=== PATIENT | male | born 1955 | race Caucasian/White ===

== ENCOUNTER 2017-09-05 20:55 | Emergency (ER) | payer MEDICAID, SELFPAY ==
[2017-09-05 20:56] VITALS: BP 179/102; PULSE 84; RESP 18; TEMP 36.7; O2SAT 100; BMI 44.1
--- NOTE | 2017-09-05 21:20 | ED.DCSUM_ITS ---
- ER Visit Summary Date of Service: 09/05/17 Chief Complaint: right buttock pain History of Present Illness: The patient is a 61 M with no medical history who presents with atraumatic right buttock pain since yesterday. 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 He denies any known injury. He denies any abdominal pain, nausea, vomiting, bowel or bladder dysfunction. He has had a normal bowel movement today. There is no position in which she is comfortable. No weakness or numbness in the leg. Patient has tried Motrin without relief. Physical Examination: Patient is well-nourished and well-developed, obese, pacing around the room uncomfortably. Nontoxic appearing. Skin is warm and dry. Examination of the skin of the right buttock and hip shows no rash and no hyperesthesia to light touch. Patient has no midline tenderness in the thoracic or lumbar spine. No left-sided paraspinal tenderness. Right sided paraspinal tenderness in the sacral region and in the buttock. Distal sensation, motor and circulation are intact bilaterally. No gait abnormalities. Test Results: [] Emergency Department Course and Treatment: Patient's presentation and exam are concerning for lower back strain, likely piriformis syndrome. Patient has no examination findings concerning for radiculopathy. No pain below the knee. Patient was given a dose of Valium for muscle relaxant and a dose of Toradol as an anti-inflammatory. He has an appointment in the morning with his primary care doctor and is just looking for relief until this appointment. Patient will use Motrin [id number] at home during the night. He was given Zofran in case of nausea from the Valium. He will keep his appointment first thing in the morning. He will return if any concerns. Patient had no red flag symptoms that were concerning for spinal cord compression and there were no findings concerning for intra-abdominal pathology rather than a musculoskeletal complaint. Treatment Plan: [] Disposition: [] Impression: Lower back strain, piriformis syndrome This note was generated with [employer] dictation software. It may contain incorrect words, spelling, and punctuation that were not noted in review of the chart prior to signing ED Disposition - Plan for ED Patient: Chief Complaint: Lower Extremity Injury Referrals: Jung Sánchez MD [Primary Care Provider] -
--- NOTE | 2017-09-05 21:20 | ED.DEP ---
ED Disposition - Plan for ED Patient: Disposition: Home or Assisted Living Chief Complaint: Lower Extremity Injury Instructions: ED Sprain Strain Lumbar Referrals: Jung Sánchez MD [Primary Care Provider] - Keep Mariam appointment Additional Instructions: Please keep your appointment in the morning with Dr. Sánchez. You were given a dose of Valium and Toradol in the emergency department. You are also given Zofran to help prevent nausea. During the night if you have any further pain, please take Motrin as needed. You may find some relief from a heating pad as well. If you have any worsening of your condition or further concerns, please come back to the emergency department for another evaluation.
[2017-09-05] MEDS: Ondansetron ODT 4 MG Tablet PO (21:26)
[2017-09-05] MEDS: Ketorolac 10 MG Tablet 20 MG PO (21:26)
[2017-09-05] MEDS: diazePAM 5 MG Tablet PO (21:26)
[2017-09-05 21:33] VITALS: PULSE 87; RESP 14; O2SAT 98
== END 2017-09-05 21:54 | disposition home or self-care (01) ==
PROVIDERS: Emergency Provider Emergency Medicine; Family Provider Family Medicine; PCP Family Medicine
DX: S39.012A Strain of muscle, fascia and tendon of lower back, initial encounter (principal); X58.XXXA Exposure to other specified factors, initial encounter; Y93.9 Activity, unspecified; Y92.9 Unspecified place or not applicable; G57.01 Lesion of sciatic nerve, right lower limb; E66.9 Obesity, unspecified; Z68.41 Body mass index [BMI] 40.0-44.9, adult
CPT/HCPCS: 99283

== ENCOUNTER 2017-11-07 08:00 | Outpatient (RCR) | payer OTHER, SELFPAY ==
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
--- NOTE | 2017-11-07 08:30 | HP.PTDCSUM ---
HP - PT D/C Summary It has been my pleasure to treat JOSE EDMOND under orders from Jung Sánchez DO, for the diagnosis of lumbar pain with radiculopathy on the R for a total of 7 visit(s). Discharge Date: 11/07/17 Please see the following information for a summary of their discharge status. - Subjective Subjective: Pt reports that her did 1 basketball game and did 2 baseball games and only had a little bit of pain (2/10). It went away about an hour after the games. He currently has no pain. He only has pain when he is more active. He reports that he can live with this kind of pain with activity. Pt reports that he will try to continue his stretching at home. Sometimes he will feel tight with walking but he generally walks through it. Pt was impressed with how he felt after basketball last night. - Pain R buttock Pain Intensity (Out of 10): 0 R leg pain Pain Intensity (Out of 10): 0 - Overall Improvement % Improvement: 100 - Objective Objective/Function: Pt is still very tight HS and Piriformis but not pain with nerve root stretches... Pt is able to sit with upright postrue without pain. - Goals Goal 1:: I HEP Goal Progress: Goal Met Goal 2:: Decreased R hip and leg pain to 2/10 with ADL's Goal Progress: Goal Met Goal 3:: Be able to sit with good posture without having any pain Goal Progress: Goal Met Goal 4:: No pain with R piriformis, HS and nerve root stretches on the R Goal Progress: Goal Met - Plan Plan: DC PT - D/C Information Discharge Comments: DC PT to home stretching If there are questions or concerns regarding this patient's physical therapy, please feel free to call me at [phone]. Thank you for the referral of this patient. Sincerely, Anamaria Montesinos
== END 2017-11-07 19:00 | disposition home or self-care (01) ==
LOC: PT 08:00
PROVIDERS: Family Provider Family Medicine; PCP Family Medicine; Visit Provider Family Medicine
DX: M54.17 Radiculopathy, lumbosacral region (principal)
CPT/HCPCS: 97110; 97140; 97161; 97530

== ENCOUNTER 2019-04-22 00:32 | Emergency (ER) | payer OTHER, SELFPAY ==
[2019-02-22 09:16] VITALS: BMI 44.1
[2019-04-22 00:32] VITALS: BP 182/101; BP 182/107; PULSE 99; RESP 18; TEMP 36.4; BMI 46.0
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
[2019-04-22] MEDS: Ibuprofen 200 MG Tablet 400 MG PO (01:01)
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
[2019-04-22 02:24] VITALS: BP 166/104; RESP 20; O2SAT 96
== END 2019-04-22 02:25 | disposition home or self-care (01) ==
PROVIDERS: Emergency Provider Emergency Medicine; Family Provider Family Medicine; PCP Family Medicine
DX: S29.012A Strain of muscle and tendon of back wall of thorax, initial encounter (principal); V89.2XXA Person injured in unspecified motor-vehicle accident, traffic, initial encounter; Y93.89 Activity, other specified; I10 Essential (primary) hypertension; Z79.899 Other long term (current) drug therapy
CPT/HCPCS: 72070; 99283

== ENCOUNTER → 2019-09-10 11:47 | Outpatient (CLI) | payer OTHER, SELFPAY ==
[2019-09-10 11:13] VITALS: BMI 47.1
--- NOTE | 2019-09-10 11:49 | RAD_ITS ---
STUDY: X-RAY - UNILATERAL RIBS ( RIGHT ) WITH CHEST REASON FOR EXAM: Male, 63 years old. Right lateral side rib pain x 3 days, no injury TECHNIQUE - RIBS: 4 view(s) of the ribs. TECHNIQUE - CHEST: Single frontal view of the chest. COMPARISON: None. FINDINGS - RIBS: Normal visualized ribs without a demonstrated fracture. FINDINGS - CHEST: The lungs are incompletely expanded and there is mild crowding in the lung bases. There is no demonstrated pleural abnormality. Normal size heart. Normal mediastinum and osiel. Normal visualized pulmonary arteries. Normal visualized aortic arch and descending thoracic aorta. There are degenerative changes of the visualized spine with multifocal bridging or near bridging endplate osteophytes. There is mild degenerative osteoarthritis of the right acromioclavicular joint. There is no demonstrated abnormality of the visualized soft tissue structures of the upper abdomen. RAD/Ribs Uni Min 3V w/PA Chest IMPRESSION: RIBS: Normal x-ray examination of the right ribs. CHEST: 1. Suboptimal inspiratory effort with crowding in the lung bases. 2. Multilevel spondylotic degenerative changes of the spine. Mild degenerative arthrosis of the right acromioclavicular joint. Electronically Signed: Syd Leyva MD at 20:00 EST , Service support ,
== END ==
LOC: MTRAD 11:49
PROVIDERS: PCP Family Medicine; Referring Provider Family Medicine; Visit Provider Family Medicine
DX: R07.9 Chest pain, unspecified (principal)
CPT/HCPCS: 71101

== ENCOUNTER 2019-12-07 07:54 | Emergency (ER) | payer OTHER, SELFPAY ==
[2019-09-10 11:13] VITALS: BMI 47.1
[2019-12-07 07:55] VITALS: BP 179/100; PULSE 100; RESP 16; TEMP 36.9; O2SAT 100; BMI 48.4
--- NOTE | 2019-12-07 08:14 | ED.DCSUM_ITS ---
History of Present Illness Chief Complaint: Sore Throat Narrative: Patient presents with mild sore throat for 1 week, sinus congestion, drainage. He has had uvulitis in the past and this feels similar. Onset of symptoms gradual. Severity mild. Worse with swallowing. He feels a constant sensation to clear his throat when his uvula is touching his tongue. No shortness of breath or chest pain. No fever or chills. No sick contacts. No recent travel. He does not smoke. Capacity - Capacity Assessment Tool Can the patient make a choice & communicate that choice?: Yes Past Medical History - Allergies and Home Meds Allergies/Adverse Reactions: Allergies Sulfa (Sulfonamide Antibiotics) Allergy (Verified 12/07/19 07:55) Hives Primary Care Physician: Jung Sánchez DO [Primary Care Provider] - Smoking Status: Never smoker Review of Systems General: Denies: Chills, Fever, Sweats Eyes: Denies: Visual changes - bilaterally, Diplopia ENT: Reports: Sore throat. Denies: Rhinorrhea Cardiovascular: Denies: Chest pain, Palpitations Respiratory: Reports: Cough. Denies: Dyspnea, Sputum, Dyspnea on exertion Gastrointestinal: Denies: Abdominal pain, Nausea, Vomiting, Diarrhea, Melena, Hematochezia Genitourinary: Denies: Dysuria, Hematuria, Frequency Musculoskeletal: Denies: Back pain, Extremity Pain Skin: Denies: Rash, Wounds Neurological: Denies: Headache, Weakness, Numbness Physical Exam Vital Signs/Narrative: Vital Signs Temp Pulse Resp BP Pulse Ox 12/07/19 07:55 98.5 F 100 16 179/100 H 100 General: Well nourished, Well developed, No Acute Distress Head: Normocephalic, Atraumatic Eyes: Perrl, EOMI ENT: Moist mucous membranes, No rhinorrhea, - - Uvula is edematous with exuda ila. Tonsils swollen bilaterally. No lymphadenopathy. Neck: Supple, Nontender Cardiovascular: Regular rate, Regular rhythm, No murmurs Respiratory: No distress, CTA bilaterally, Chest nontender Abdomen: Soft, Nontender, Nondistended, Normal bowel sounds Back: Nontender, Normal Inspection Extremities: Nontender, No edema Skin: Normal color, No rash Neurological: Alert, Oriented x3, Cranial nerves II-XII grossly intact, Normal Strength, Normal Sensation Psychological: Normal affect, Normal Mood Diagnostic/Tx/Re-eval - Medical Decision Making He does appear to have uvulitis. He has exudates bilaterally on his tonsils as well with mild swelling. Uvula is still midline. No evidence of abscess. Voice is normal. No stridor. Submandibular tissues are soft. He states that last time he was treated with antibiotics and steroids and improved in just a few days. His lungs are clear. No fever. No exposure to coronavirus. No body aches or fever. Given the duration of his symptoms, I do think treatment with antibiotics is reasonable. I will treat him with Augmentin and prednisone. reTurn precautions explained. ED Disposition - Plan for ED Patient: Disposition: Home or Assisted Living Diagnosis: Uvulitis Instructions: ED Uvulitis Prescriptions: Amox/Clavulanate Tablet [Augmentin Tablet] 875 mg PO Q12H #14 tablet Prednisone [Deltasone] 40 mg PO DAILY #10 tablet Referrals: Jung Sánchez DO [Primary Care Provider] -
== END 2019-12-07 08:25 | disposition home or self-care (01) ==
LOC: ED 08:25
PROVIDERS: Emergency Provider Emergency Medicine; PCP Family Medicine
DX: K12.2 Cellulitis and abscess of mouth (principal)
CPT/HCPCS: 99282

== ENCOUNTER 2020-05-09 17:03 | Emergency (ER) | payer OTHER, SELFPAY ==
[2020-05-09 17:04] VITALS: BP 184/102; PULSE 84; RESP 16; RESP 18; TEMP 36.1; O2SAT 100; O2SAT 99; BMI 48.2
--- NOTE | 2020-05-09 17:25 | ED.VIS.GEN ---
History of Present Illness Chief Complaint: Sore Throat Informant: Patient Onset: Yesterday Context: Gradual Onset Timing: Continuous Quality: Sharp Location: throat Current Severity: Moderate Maximum Severity: Severe Worsened by: Eating and drinking Relieved by: Nothing Associated Symptoms: Denies Narrative: 64-year-old male presents with sore throat. Started yesterday. He has a history of uvulitis. He states this feels similar. No fevers no cough no difficulty breathing no difficulty swallowing no difficulty opening closing his mouth. No headache. He is not lightheaded or dizzy. No nausea or vomiting. No rash. No sick contacts. No contacts with coronavirus patients. No loss of taste or smell Prior similar symptoms: Yes Recent Illness/Hospitalization: No Past Medical History - Allergies and Home Meds Allergies/Adverse Reactions: Allergies Sulfa (Sulfonamide Antibiotics) Allergy (Verified 12/07/19 07:55) Hives Primary Care Physician: Jung Sánchez DO [Primary Care Provider] - Prior records reviewed: Yes Past Medical History: - - Seasonal allergies Surgical History: noncontributory Lives: With Family Smoking Status: Never smoker Alcohol: Occasional Drugs: None Review of Systems All systems negative except as indicated General: Denies: Chills, Fever, Sweats Eyes: Denies: Visual changes - bilaterally, Diplopia ENT: Reports: Sore throat. Denies: Bilateral ear pain, Left ear pain, Right ear pain, Rhinorrhea Cardiovascular: Denies: Chest pain, Palpitations, Heart racing Respiratory: Denies: Dyspnea, Cough, Sputum, Dyspnea on exertion, Orthopnea, Paroxysmal nocturnal dyspnea Gastrointestinal: Denies: Abdominal pain, Nausea, Vomiting, Diarrhea, Melena, Hematochezia Genitourinary: Denies: Dysuria, Hematuria, Frequency Musculoskeletal: Denies: Myalgias, Arthralgias, Neck pain, Back pain, Swelling, Extremity Pain Skin: Denies: Rash, Wounds Neurological: Denies: Headache, Weakness, Parasthesia, Numbness Allergy: Denies: Uticaria, Swelling of the mouth, Swelling of the tongue Physical Exam Vital Signs/Narrative: Vital Signs Temp Pulse Resp BP Pulse Ox 05/09/20 17:04 97 F L 84 16 184/102 H 99 Inital Vital Signs reviewed: Yes General: Well nourished, Well developed, No Acute Distress Head: Normocephalic, Atraumatic Eyes: Perrl, EOMI ENT: Moist mucous membranes, No rhinorrhea, - - Patient has a swollen uvula. No tonsillar swelling. Uvula is midline. No tonsillar abscess. No sublingual edema or trismus. Voice is normal. Neck: Supple, Nontender, No lymphadenopathy Cardiovascular: Regular rate, Regular rhythm, No murmurs Respiratory: No distress, CTA bilaterally, Chest nontender Abdomen: Soft, Nontender, Nondistended, Normal bowel sounds Back: Nontender, Normal Inspection Extremities: Nontender, No edema Skin: Normal color, No rash Neurological: Alert, Oriented x3, Cranial nerves II-XII grossly intact, Normal Strength, Normal Sensation Psychological: Normal affect, Normal Mood Diagnostic/Tx/Re-eval - Medical Decision Making Patient has uvulitis. No peritonsillar abscess. No trismus drooling or stridor. He is able to tolerate by mouth. His voice is normal. Will be given a dose of Decadron. Will be discharged home. Discussed supportive care we referred to his primary for follow-up and he was given return precautions. He is agreeable with plan of care and all questions were answered. ED Disposition - Plan for ED Patient: Disposition: Home or Assisted Living Diagnosis: Uvulitis Instructions: ED Uvulitis Prescriptions: Amox/Clavulanate Tablet [Augmentin Tablet] 875 mg PO Q12H #20 tab Transmission Status: Pending to [facility] Prednisone [Deltasone] 40 mg PO DAILY #10 tab Transmission Status: Pending to [facility] Referrals: Jung Sánchez DO [Primary Care Provider] - 3-5 Days
[2020-05-09] MEDS: predniSONE 20 MG Tablet 60 MG PO (17:43)
[2020-05-09] MEDS: Amox/Clavulanate 875 MG Tablet PO (17:43)
[2020-05-09 17:47] VITALS: RESP 16
== END 2020-05-09 17:48 | disposition home or self-care (01) ==
LOC: ED 17:47
PROVIDERS: Emergency Provider Physician Assistant Medical; PCP Family Medicine
DX: K12.2 Cellulitis and abscess of mouth (principal)
CPT/HCPCS: 99283

== ENCOUNTER 2020-07-07 19:35 | Emergency (ER) | payer OTHER, SELFPAY ==
[2020-07-07 19:36] VITALS: BP 219/107; PULSE 99; RESP 22; TEMP 35.2; BMI 47.2
[2020-07-07 21:35] VITALS: BP 190/98
--- NOTE | 2020-07-07 21:35 | ED.DCSUM_ITS ---
History of Present Illness Chief Complaint: Sore Throat Narrative: Patient presents with sore throat started a few days ago he also been treated a week ago for sinusitis with azithromycin. He has no fever or chills, he has no difficulty breathing. He has no chest pain or shortness of breath. Past Medical History - Allergies and Home Meds Allergies/Adverse Reactions: Allergies Sulfa (Sulfonamide Antibiotics) Allergy (Verified 07/07/20 21:27) Hives Primary Care Physician: Jung Sánchez DO [Primary Care Provider] - Past Medical History: - - Hypertension, hypercholesterolemia Surgical History: noncontributory Smoking Status: Never smoker Review of Systems All systems negative except as indicated General: Denies: Fever Eyes: Denies: Visual changes - bilaterally ENT: Reports: - - Sore throat, upper airway congestion and sinus tenderness Cardiovascular: Denies: Chest pain Respiratory: Denies: Dyspnea, Cough Gastrointestinal: Reports: Abdominal pain Musculoskeletal: Denies: Extremity Pain Skin: Denies: Rash Neurological: Denies: Headache, Weakness Endocrine: Denies: Polyuria Hematologic: Denies: Easy bruising Allergy: Denies: Uticaria, Swelling of the mouth Physical Exam Vital Signs/Narrative: Vital Signs Temp Pulse Resp BP 07/07/20 19:36 95.3 F L 99 22 H 219/107 H General: Well nourished, Well developed Head: Normocephalic Eyes: Perrl, EOMI ENT: - - He has bilateral sinus tenderness in the frontal sinuses. He has rhinorrhea and swollen nasal turbinates. They are beefy red. He has obvious uvulitis. He has no signs of peritonsillar abscess. Normal soft palate. Cardiovascular: Regular rate, Regular rhythm Respiratory: No distress, CTA bilaterally Abdomen: Soft, Nontender Extremities: Nontender, No edema Skin: Normal color Neurological: Alert, Normal Strength, Normal Sensation Diagnostic/Tx/Re-eval - Medical Decision Making She has an intact airway he appears well he has sinusitis that is resistant to azithromycin. I will treat with steroids for the uvulitis and start Augmentin. ED Disposition - Plan for ED Patient: Disposition: Home or Assisted Living Diagnosis: Uvulitis, Acute frontal sinusitis, unspecified Instructions: ED Uvulitis, ED Sinusitis (Antibiotic Treatment) Prescriptions: Amoxicillin/Potassium Clav [Augmentin 875-125 Tablet] 1 ea PO BID #20 tab Transmission Status: Pending to [facility] Referrals: Talat Nelson MD [STAFF PHYSICIAN] - 3-5 Days
[2020-07-07] MEDS: Amox/Clavulanate 875 MG Tablet PO (21:42)
[2020-07-07] MEDS: Triamcinolone Acetonide 40 MG/ML Vial IM (21:43)
== END 2020-07-07 22:00 | disposition home or self-care (01) ==
LOC: ED 21:55
PROVIDERS: Emergency Provider Emergency Medicine; PCP Family Medicine
DX: K12.2 Cellulitis and abscess of mouth (principal); J01.10 Acute frontal sinusitis, unspecified; I10 Essential (primary) hypertension
CPT/HCPCS: 96372; 99283

== ENCOUNTER 2020-09-18 07:52 | Emergency (ER) | payer OTHER, SELFPAY ==
[2020-09-18 07:53] VITALS: BP 187/103; PULSE 81; RESP 20; TEMP 36.3; O2SAT 99; BMI 42.5
--- NOTE | 2020-09-18 08:07 | ED.VIS.DENTA ---
History of Present Illness Chief Complaint: Dental Narrative: Patient presenting due to concern for a dental infection. Patient admittedly has poor dentition. He states that over the course of the last 2 days he has been having pain and swelling in his right mandibular jaw. He denies that there is any swallowing difficulties. Denies that there is any sort of fevers or constitutional symptoms. He does have an appointment with a dentist but not for another 10 days, they told him that they could not call them in anything until he is seen. Patient states that he has been gargling with salt water and that really has not been alleviating his symptoms are making anything better. Review of systems otherwise negative. Past Medical History - Allergies and Home Meds Allergies/Adverse Reactions: Allergies Sulfa (Sulfonamide Antibiotics) Allergy (Verified 09/18/20 07:53) Hives Primary Care Physician: Jung Sánchez DO [Primary Care Provider] - Prior records reviewed: Yes Past Medical History: - - Hypertension Surgical History: noncontributory Smoking Status: Never smoker Alcohol: None Drugs: None Review of Systems General: Denies: Chills, Fever ENT: Reports: - - Dental pain and swelling, - - No difficulty swallowing Cardiovascular: Denies: Chest pain Respiratory: Denies: Dyspnea, Cough Gastrointestinal: Denies: Nausea, Vomiting Musculoskeletal: Denies: Myalgias Skin: Denies: Rash Hematologic: Denies: Easy bruising, Easy bleeding Allergy: Denies: Swelling of the tongue Physical Exam Vital Signs/Narrative: Vital Signs Temp Pulse Resp BP Pulse Ox 09/18/20 07:53 97.4 F L 81 20 H 187/103 H 99 Inital Vital Signs reviewed: Yes General: Well nourished, Well developed, Obese Head: Normocephalic, Atraumatic ENT: Moist mucous membranes Mouth/Throat: No focal abscess, Normal posterior oropharynx, Widespread dental decay, - - Patient has poor dentition with multiple teeth with significant dental caries and decay. There is focal swelling of the patient's right mandibular gumline. This does extend very minimally into the sublingual space on the right but the sublingual space is soft.. Negative for: Trismus Neck: Supple, No lymphadenopathy, Nontender, No JVD. Negative for: Submandibular soft tissue swelling Cardiovascular: Regular rate, Regular rhythm Respiratory: No distress Extremities: Nontender Skin: Normal color Neurological: Alert, Oriented x3 Psychological: Normal affect Diagnostic/Tx/Re-eval - Medical Decision Making Patient presented with a dental infection. He has evidence of gumline swelling on the right. There is some slight extension into the sublingual space on the right but his sublingual space is soft and he has no swallowing difficulties or constitutional symptoms or reasons for me to think that this is an early deep space neck infection or Ameya's angina. Patient will be treated with penicillin. He will follow-up with his dentist. Patient was discharged in stable condition. ED Disposition - Plan for ED Patient: Disposition: Home or Assisted Living Diagnosis: Dental infection Instructions: ED Dental Abscess Prescriptions: Penicillin V Potassium 500 mg PO 4X/DAY #40 tab Prescription Printed Referrals: Jung Sánchez DO [Primary Care Provider] - Additional Instructions: Follow-up with your dentist in 10 days as scheduled
== END 2020-09-18 08:18 | disposition home or self-care (01) ==
LOC: ED 08:13
PROVIDERS: Emergency Provider Emergency Medicine; PCP Family Medicine
DX: K04.7 Periapical abscess without sinus (principal); E66.9 Obesity, unspecified; I10 Essential (primary) hypertension
CPT/HCPCS: 99282

== ENCOUNTER 2021-05-08 11:49 | Emergency (ER) | payer OTHER, SELFPAY ==
[2021-05-08 11:52] VITALS: BP 151/100; PULSE 106; RESP 20; TEMP 38.2; O2SAT 94; BMI 32.3
[2021-05-08 12:06] VITALS: BP 151/100; PULSE 106; RESP 20; TEMP 38.2; O2SAT 94
--- NOTE | 2021-05-08 12:37 | RAD_ITS ---
HISTORY: cough. TECHNIQUE: XR Chest 1 View. # of images incl. paperwork: 1. COMPARISON: 09/10/2019. FINDINGS: CARDIOMEDIASTINAL STRUCTURES: Cardiac silhouette not enlarged. Mediastinal contour unremarkable. LUNGS: Right basilar consolidation. PLEURA: No pleural effusion or pneumothorax. OSSEOUS STRUCTURES: Degenerative change. RAD/Chest 1 View (Portable) IMPRESSION: Right basilar consolidation concerning for pneumonia. Recommend follow-up to resolution. at 1345 Reported and signed by: Essie Thurston MD Electronically Signed: Essie Thurston MD at 13:44 EDT Tel , Service support ,
[2021-05-08] MEDS: Acetaminophen 500 MG Tablet 1000 MG PO (12:53)
[2021-05-08 13:09] LABS: Absolute Lymphocyte Count 1.09 X10^3/uL (0.83-4.51); Absolute Neutrophil Count 3.6 X10^3/uL (2.0-7.7); Basophil# 0.01 X10^3/uL; Basophil% 0.2 % (0-1); Eosinophil# 0.01 X10^3/uL; Eosinophils% 0.2 % (0-5); Hematocrit 43.8 % (40-54); Lymphocyte # 1.09 X10^3/ul (0.83-4.51); Mean Corpuscular Hgb 27.1 pg (27.0-32.0); Mean Corpuscular Volume 84.9 fL (80-94); Mean Platelet Vol. 9.8 fl (6.2-12.0); Monocyte# 0.45 X10^3/uL; Monocyte% 8.7 % (0-10); NRBC Flagged by Analyzer 0 % (0-5); Neutrophil # 3.59 X10^3/uL (2.7-7.7); Neutrophil % 69.3 % (47-70); Platelet Count 205 K/mm3 (150-450); RBC Distribution Width CV 14.6 % (11.6-14.6); RBC Distribution Width SD 45.5 fl (35.1-43.9); Red Blood Count 5.16 M/mm3 (4.6-6.2); White Blood Count 5.2 K/mm3 (4.4-11.0)
[2021-05-08 13:23] LABS: ALB/GLOB Ratio 0.9 RATIO (0.9-2.4); AST(SGOT) 31 U/L (15-37); Alanine Aminotransfer ALT/SGPT 30 U/L (16-61); Albumin, Serum 3.4 g/dL (3.2-5.0); Alkaline Phosphatase 85 U/L (45-117); Anion Gap 6 (5-15); BUN 15 mg/dL (7-18); Calcium,Total 8.5 mg/dL (8.5-10.1); Chloride 103 mmol/L (98-107); Creatinine, Serum 1.07 mg/dL (0.70-1.30); EST Glomerular Filtration Rate 74 mL/min (>60); Est Glom Filt Rate - Afr Amer 89 mL/min (>60); Estimated Creatinine Clearance 62.94 ml/min; Globulin 3.9 g/dL (2.2-4.2); Glucose 108 mg/dL (74-106); Potassium 3.8 mmol/L (3.5-5.1); Protein, Total 7.3 g/dL (6.4-8.2); Sodium Level 137 mmol/L (136-145)
[2021-05-08 13:44] VITALS: BP 139/99; PULSE 98; RESP 21; TEMP 38.1; O2SAT 94
[2021-05-08 14:00] VITALS: BP 139/81; PULSE 89; RESP 18; TEMP 37.6; O2SAT 93
--- NOTE | 2021-05-08 14:26 | EX.ED.DYSGE1 ---
HPI History of Present Illness Chief Complaint: General Illness Informant: patient Onset/Context/Timing Onset: Days (2) Context: Gradual Onset Timing: Continuous Quality: Myalgias, aching Location: Generalized Worsened by: Nothing Relieved by: Nothing Narrative Narrative: Patient presents with cough and body aches that have been getting worse over the past 2 days. Patient states his tested positive for Covid yesterday. Patient states he took a home COVID-19 test yesterday with and it was positive. Patient states he is unsure of the accuracy of the home COVID-19 test. Patient admits to a cough but denies any sputum. Patient admits to subjective fevers and chills. Patient states nothing makes his pain better and nothing makes it worse. Patient denies any chest pain. [facility] Medical History History of basal cell carcinoma Hypertension Home Medications tobramycin 0.3 %-dexamethasone 0.05 % eye drops,suspension 1 drp OPHTHALMIC (EYE) Q6H #5 ml 12/15/20 [Rx Last Taken Unknown] lisinopril 10 mg tablet 10 mg PO DAILY #30 tab 04/21/21 [Rx Last Taken Unknown] minocycline 50 mg capsule 50 mg PO BID #60 cap 04/21/21 [Rx Last Taken Unknown] triamcinolone acetonide 0.1 % topical cream 1 applic TOPICAL BID PRN #80 g 04/21/21 [Rx Last Taken Unknown] valsartan 160 mg tablet 160 mg PO DAILY #90 tab 05/05/21 [Rx Last Taken Unknown] Allergy/AdvReac Type Severity Reaction Status Date / Time Sulfa (Sulfonamide Allergy Hives Verified 05/08/21 11:51 Antibiotics) Family History Father Myocardial infarction, Onset Age: 57 Surgical History H/O wrist surgery Social History Smoking Status: Never smoker alcohol intake: never substance use type: does not use what type of physical activity do you participate in: none ROS ROS ED Constitutional Constitutional ED: Reports chills, fever(s) and subjective Eyes Eyes: Denies blurry vision or change in vision ENT ENT ED: Denies rhinorrhea or sore throat Cardiovascular Cardiovascular: Denies chest pain or palpitations Respiratory/Chest Respiratory/Chest: Reports cough and dyspnea Gastrointestinal Gastrointestinal: Denies nausea or vomiting Genitourinary Genitourinary ED: Denies dysuria or hematuria Musculoskeletal Musculoskeletal: Reports myalgias; Denies back pain or neck pain Integumentary Denies abscess or rash Neurologic Neurologic: Denies headache(s) or weakness Allergic/Immunologic Allergic/Immunologic ED: Denies mouth swelling or urticaria EXAM Physical Exam Const Vital Signs: 05/08/21 11:52 05/08/21 12:04 05/08/21 12:06 Temperature 100.7 F H 100.7 F H Temperature Source Temporal Temporal Pulse Rate 106 H 106 H Respiratory Rate 20 H 20 H Respiratory Effort Short of Breath Respiratory Pattern Normal Blood Pressure 151/100 H 151/100 H Blood Pressure Mean 117 117 Pulse Ox 94 94 Oxygen Delivery Method Room Air Room Air 05/08/21 13:44 05/08/21 14:00 Temperature 100.6 F H 99.6 F H Temperature Source Temporal Oral Pulse Rate 98 89 Respiratory Rate 21 H 18 Respiratory Effort Respiratory Pattern Blood Pressure 139/99 H 139/81 H Blood Pressure Mean 112 100 Pulse Ox 94 93 Oxygen Delivery Method Room Air Room Air Positive well nourished, well developed and obese General Appearance ED: well developed Nutritional Appearance: obese HEENT Reports moist mucous membranes Neck supple and no JVD Resp normal respiratory effort and clear to auscultation bilaterally Auscultation: rales bilateral Cardio regular rate, regular rhythm and no murmurs GI normal to inspection, nondistended, normoactive bowel sounds and non-tender Palpation: soft Extremity normal to inspection General Extremety ED: Negative for edema or tenderness General Extremity: Negative for edema Neuro oriented x3, CN's II-XII intact bilaterally and no sensory deficits noted Sensorium / Orientation: alert Motor Exam: strength 5/5 throughout Psych mental status grossly normal Skin no rashes or lesions noted MDM MDM MDM Narrative Medical decision making narrative: Patient was given a dose of Tylenol here. Patient was given 6 puffs of an albuterol inhaler. COVID-19 rapid antigen was obtained and was positive. Portable chest x-ray was obtained. There is 1 view. On my interpretation, there is a right basilar infiltrate. Bony thorax is normal. There is no cardiomegaly. Radiologist also interpreted the x-ray and agrees. CBC and comprehensive metabolic profile were within normal limits. Patient is feeling better on reevaluation. Patient was instructed to continue his inhaler as needed. Patient was instructed to follow-up with his primary care physician in 5 to 7 days. Patient was instructed to continue Tylenol as needed for any aches or fevers. Patient understood and was agreeable with the plan. All questions were answered. Lab Data Labs: Laboratory Results - last 24 hr 05/08/21 05/08/21 12:55 12:55 WBC 5.2 RBC 5.16 Hgb 14.0 Hct 43.8 MCV 84.9 MCH 27.1 MCHC 32.0 RDW Std Deviation 45.5 H RDW Coeff of Kvng 14.6 Plt Count 205 MPV 9.8 Immature Gran % (Auto) 0.600 Neut % (Auto) 69.3 Lymph % (Auto) 21.0 Fleming % (Auto) 8.7 Eos % (Auto) 0.2 Baso % (Auto) 0.2 Absolute Neuts (auto) 3.6 Absolute Lymphs (auto) 1.09 Nucleated RBC % 0 Sodium 137 Potassium 3.8 Chloride 103 Carbon Dioxide 28.0 Anion Gap 6 BUN 15 Creatinine 1.07 Estim Creat Clear Calc 62.94 Est GFR (MDRD) Af Amer 89 Est GFR (MDRD) Non-Af 74 BUN/Creatinine Ratio 14.0 Glucose 108 H Calcium 8.5 Total Bilirubin 0.40 AST 31 ALT 30 Alkaline Phosphatase 85 Total Protein 7.3 Albumin 3.4 Globulin 3.9 Albumin/Globulin Ratio 0.9 Radiography Diagnostic Testing: Clinical Impression(s) from Imaging Studies Chest X-Ray 05/08/21 12:37 IMPRESSION: Right basilar consolidation concerning for pneumonia. Recommend follow-up to resolution. at 1345 Reported and signed by: Essie Thurston MD Electronically Signed: Essie Thurston MD at 13:44 EDT Tel , Service support , Discharge Plan Triage Chief Complaint: General Illness ED Provider: Grayson Au Dx/Rx/DC Orders Clinical Impression: Pneumonia due to COVID-19 virus Instructions: Coronavirus Disease 2019 (COVID-19): Caring for Yourself or Others Prescriptions: No Action minocycline 50 mg capsule 50 mg PO BID Qty: 60 RF: 0 lisinopril 10 mg tablet 10 mg PO DAILY Qty: 30 RF: 1 triamcinolone acetonide 0.1 % cream 1 applic topical BID PRN (Reason: rash, itching) Qty: 80 RF: 1 tobramycin-dexamethasone 0.3-0.05 % drops,suspension 1 drp ophthalmic (eye) Q6H Qty: 5 RF: 1 valsartan 160 mg tablet 160 mg PO DAILY Qty: 90 RF: 2 Primary Care Provider: Jung Sánchez Referrals: Jung Sánchez DO [Primary Care Provider] - 5-7 Days Disposition Disposition: Home, Self Care
[2021-05-08 14:46] VITALS: BP 139/85; PULSE 86; RESP 18; O2SAT 94
== END 2021-05-08 14:47 | disposition home or self-care (01) ==
PROVIDERS: Emergency Provider Emergency Medicine; PCP Family Medicine
DX: U07.1 COVID-19 (principal); J12.82 Pneumonia due to coronavirus disease 2019; E66.9 Obesity, unspecified; I10 Essential (primary) hypertension; Z79.899 Other long term (current) drug therapy
CPT/HCPCS: 71045; 80053; 85025; 87426; 99284; A4216

== ENCOUNTER 2021-05-10 16:07 | Outpatient (CLI) | payer OTHER, SELFPAY ==
[2021-05-10 16:12] VITALS: BP 155/77; PULSE 99; RESP 18; TEMP 37.9; O2SAT 98; BMI 46.7
[2021-05-10] MEDS: 0.9% Saline Lock 10 ML Syringe IV (16:15)
[2021-05-10 17:11] VITALS: BP 144/69; PULSE 92; RESP 18; TEMP 38.1; O2SAT 96
[2021-05-10 17:55] VITALS: BP 151/75; PULSE 92; RESP 18; TEMP 38.1
== END 2021-05-10 18:11 | disposition home or self-care (01) ==
LOC: MS3OUT 16:08 → MS3 16:08
PROVIDERS: PCP Family Medicine; Referring Provider Nurse Practitioner Adult Health; Visit Provider Nurse Practitioner Adult Health
DX: Z23 Encounter for immunization (principal); U07.1 COVID-19
CPT/HCPCS: J7050; M0243; A4216; Q0240

== ENCOUNTER → 2022-06-30 | Outpatient (CLI) | payer MEDICARE, SELFPAY ==
--- NOTE | 2022-06-30 16:20 | RAD_ITS ---
INDICATION: LEFT KNEE PAIN EXAMINATION/TECHNIQUE: X-RAY - LEFT XR Knee 3 Views 4 VIEWS COMPARISON: November 03, 2014 tibia-fibula. FINDINGS: SOFT TISSUES: Mild thigh and diffuse knee subcutaneous soft tissue edema, most prominent anteriorly. No radiopaque foreign body. Mild scattered femoral atherosclerosis. BONES/JOINTS: Normal alignment. No effusion. Medial and patellofemoral compartment joint space narrowing with mild osteophyte formation. 9 mm left anterior central knee joint loose body. No acute fracture or osteochondral defect. No sclerotic or destructive changes observed. 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 Nonspecific thigh and knee subcutaneous soft tissue edema. Electronically Signed: Donny Barahona MD at 0:59 EST ,
== END | disposition home or self-care (01) ==
LOC: RAD 16:08
PROVIDERS: PCP Family Medicine; Referring Provider Family Medicine; Visit Provider Family Medicine
DX: M25.562 Pain in left knee (principal)
CPT/HCPCS: 73562

== ENCOUNTER → 2022-09-30 | Outpatient (CLI) | payer MEDICARE, SELFPAY ==
[2022-09-30 15:03] LABS: Absolute Lymphocyte Count 2.31 X10^3/uL (0.83-4.51); Absolute Neutrophil Count 3.7 X10^3/uL (2.0-7.7); Basophil# 0.05 X10^3/uL; Basophil% 0.7 % (0-1); Eosinophil# 0.21 X10^3/uL; Hematocrit 44.9 % (40-54); Hemoglobin 14.1 g/dL (13.0-16.5); Lymphocyte # 2.31 X10^3/ul (0.83-4.51); Lymphocyte % 33.1 % (19-41); Mean Corp Hgb Conc 31.4 g/dL (32-36); Mean Corpuscular Hgb 27.1 pg (27.0-32.0); Mean Corpuscular Volume 86.2 fL (80-94); Mean Platelet Vol. 9.8 fl (6.2-12.0); Monocyte# 0.65 X10^3/uL; Monocyte% 9.3 % (0-10); NRBC Flagged by Analyzer 0 % (0-5); Neutrophil % 53.2 % (47-70); Platelet Count 290 K/mm3 (150-450); RBC Distribution Width CV 14.5 % (11.6-14.6); RBC Distribution Width SD 45.4 fl (35.1-43.9); Red Blood Count 5.21 M/mm3 (4.6-6.2)
[2022-09-30 15:42] LABS: AST(SGOT) 21 U/L (15-37); Alanine Aminotransfer ALT/SGPT 30 U/L (16-61); Albumin, Serum 3.8 g/dL (3.2-5.0); Alkaline Phosphatase 103 U/L (45-117); Anion Gap 7 (5-15); BUN 27 mg/dL (7-18); Calcium,Total 9.3 mg/dL (8.5-10.1); Chloride 101 mmol/L (98-107); Cholesterol 192 mg/dL (200); Creatinine, Serum 1.04 mg/dL (0.70-1.30); EST Glomerular Filtration Rate 76 mL/min (>60); Est Glom Filt Rate - Afr Amer 92 mL/min (>60); Globulin 3.7 g/dL (2.2-4.2); Glucose 106 mg/dL (74-106); High Density Lipoprotein 34 mg/dL; PSA,Total - Annual Screen 2.78 ng/mL (0.00-4.00); Potassium 3.4 mmol/L (3.5-5.1); Protein, Total 7.5 g/dL (6.4-8.2); Sodium Level 136 mmol/L (136-145); Thyroid Stim Hormone (TSH) 1.63 uIU/mL (0.358-3.74); Triglycerides 203 mg/dL; Very Low Density Lipoprotein 41 mg/dL (5-40)
[2022-09-30 15:51] LABS: Hemoglobin A1c 5.9 % (3.8-5.6)
== END | disposition home or self-care (01) ==
LOC: BIMLAB 14:16
PROVIDERS: PCP Family Medicine; Referring Provider Nurse Practitioner Family; Visit Provider Nurse Practitioner Family
DX: R60.0 Localized edema (principal); I10 Essential (primary) hypertension; E66.9 Obesity, unspecified; Z68.32 Body mass index [BMI] 32.0-32.9, adult; R73.03 Prediabetes; Z12.5 Encounter for screening for malignant neoplasm of prostate
CPT/HCPCS: 36415; 80053; 80061; 83036; 84153; 84443; 85025; G0103

== ENCOUNTER 2023-01-26 16:00 | Emergency (ER) | payer MEDICARE, SELFPAY ==
[2023-01-26 16:01] VITALS: BP 195/97; PULSE 106; RESP 18; TEMP 36.6; O2SAT 97; BMI 50.3
--- NOTE | 2023-01-26 16:35 | EX.ED.DYSGE1 ---
HPI <JOHANNA Rivas - Last Filed: 01/26/23 17:50> History of Present Illness Chief Complaint: Cellulitis Narrative Narrative: Patient is a 67-year-old male with history of obesity, hypertension, chronic back pain, bilateral lower leg edema who presents to the [facility] with worsening pain, redness, swelling to the right lower extremity. He did see his PCP today who told him to go to the emergency department for further follow-up. Patient denies any fever or chills, patient states the right lower leg is been more swollen, more red over the last 3 to 4 days. Patient denies any history of blood clots, denies any chest pain or shortness of breath. He denies any significant fever or chills. PFS <JOHANNA Rivas - Last Filed: 01/26/23 17:50> [facility] Medical History Acne rosacea Acute frontal sinusitis, unspecified Acute sinusitis, unspecified Arthritis of knee Cough COVID-19 History of basal cell carcinoma History of skin cancer Hypertension Infected dental carries Inguinal hernia of left side without obstruction or gangrene Prediabetes Right-sided chest wall pain Skin ulcer of scrotum URI (upper respiratory infection) Home Medications minocycline 50 mg capsule 50 mg PO BID #180 caps 11/11/21 [Rx Last Taken Unknown] valsartan 160 mg tablet 160 mg PO DAILY #90 tabs 11/11/21 [Rx Last Taken Unknown] hydrochlorothiazide 25 mg tablet 25 mg PO DAILY #90 tabs 08/24/22 [Rx Last Taken Unknown] cetirizine 10 mg tablet 10 mg PO DAILY 09/30/22 [History Last Taken Unknown] furosemide 20 mg tablet (Lasix) 20 mg PO QAM #90 tabs 09/30/22 [Rx Last Taken Unknown] potassium chloride 10 mEq tablet,extended release 10 meq PO DAILY #90 tabs 09/30/22 [Rx Last Taken Unknown] amoxicillin 875 mg-potassium clavulanate 125 mg tablet 1 tab PO BID #14 tabs 01/06/23 [Rx Last Taken Unknown] amoxicillin 875 mg-potassium clavulanate 125 mg tablet 1 tab PO BID #19 tabs 01/26/23 [Rx Last Taken Unknown] Allergy/AdvReac Type Severity Reaction Status Date / Time Sulfa (Sulfonamide Allergy Hives Verified 01/26/23 16:01 Antibiotics) Family History Father Myocardial infarction, Onset Age: 57 Surgical History H/O wrist surgery Social History Smoking Status: Never smoker alcohol intake: never substance use type: does not use what type of physical activity do you participate in: none ROS <JOHANNA Rivas - Last Filed: 01/26/23 17:50> ROS ED ROS Narrative Constitutional: Negative for fever, chills, weight loss, weakness Eyes: Negative for vision loss, vision change, double vision ENT: Negative for any sore throat, ear pain, congestion Cardiovascular: Negative for any chest pain, tightness, palpitations Respiratory: Negative for any cough, sputum production, hemoptysis, dyspnea, dyspnea on exertion, orthopnea Gastrointestinal: Negative for any abdominal pain, nausea, vomiting, diarrhea, constipation, blood in stool, blood in vomit : Negative for any urinary frequency, dysuria, retention, blood in urine Muscle skeletal: Negative for any muscle joint pain, stiffness, myalgias, arthralgias, neck pain, back pain. Positive for right lower extremity redness, edema there is some redness, leakage from small opening Neurological: Negative for any headache, syncope, numbness or tingling, dizziness Skin: Negative for any rashes, lumps, itching, abrasions, lacerations Psychiatric: Negative for any depression, anxiety, stress, suicidal ideation, homicidal ideation Hematologic: Negative for any easy bruising, excessive bruising, easy bleeding Allergies: Negative for any eczema, hives, rash EXAM <JOHANNA Rivas - Last Filed: 01/26/23 17:50> Physical Exam Narrative Exam Narrative: Vital signs reviewed. HEET: Head normocephalic atraumatic, TMs clear bilaterally. Posterior pharynx is clear, moist mucous membranes. Nares clear bilaterally. Neck: Supple with no lymphadenopathy or tenderness. No signs of meningismus, negative jolt sign. Cardiac: Regular rate and rhythm no murmurs gallops or rubs, equal peripheral pulses bilaterally. Respiratory: Lungs clear to auscultation bilaterally. No chest tenderness. Abdomen: Soft, nontender, nondistended. No abdominal bruit or pulsatile masses. No hepatosplenomegaly Extremities: Patient has +3 pitting edema to the left lower extremity, +4 pitting edema, patient does have some drainage from an opening in the skin, this is serosanguineous. Patient does have worsening pain with ambulation. Patient redness is circumferential. However is not as warm to the touch. This does not appear chronic however.no signs of gross trauma or deformity. Active full range of motion of all extremities. Neuro: Cranial nerves II through XII intact, no focal neurological deficits. Skin: Clean dry and intact with no rash, purpura, petechiae, vesicles or pustules. Backs/flank: No CVA tenderness, no midline spinal tenderness, no deformity. Psych: Normal mood and affect. No SI, HI or acute psychosis. Const Vital Signs: 01/26/23 16:01 01/26/23 16:30 Temperature 97.9 F Temperature Source Temporal Pulse Rate 106 H Respiratory Rate 18 Respiratory Effort Normal Non-Labored Respiratory Pattern Normal Blood Pressure 195/97 H Blood Pressure Mean 129 Pulse Ox 97 <Dr. Timoteo Vázquez MD - Last Filed: 01/28/23 15:07> Physical Exam Const Vital Signs: 01/26/23 16:01 01/26/23 16:30 Temperature 97.9 F Temperature Source Temporal Pulse Rate 106 H Respiratory Rate 18 Respiratory Effort Normal Non-Labored Respiratory Pattern Normal Blood Pressure 195/97 H Blood Pressure Mean 129 Pulse Ox 97 [facility] <JOHANNA Rivas - Last Filed: 01/26/23 17:50> [facility] Lab Data Labs: Laboratory Results - last 24 hr 01/26/23 16:49 WBC 6.6 RBC 4.82 Hgb 12.9 L Hct 40.5 MCV 84.0 MCH 26.8 L MCHC 31.9 L RDW Std Deviation 45.2 H RDW Coeff of Kvng 15.0 H Plt Count 262 MPV 10.0 Immature Gran % (Auto) 0.500 Neut % (Auto) 64.5 Lymph % (Auto) 22.6 Petroleum % (Auto) 8.4 Eos % (Auto) 3.2 Baso % (Auto) 0.8 Absolute Neuts (auto) 4.3 Absolute Lymphs (auto) 1.49 Nucleated RBC % 0 Sodium 139 Potassium 3.6 Chloride 106 Carbon Dioxide 26.0 Anion Gap 7 BUN 21 H Creatinine 1.09 Estim Creat Clear Calc 60.16 Est GFR (MDRD) Af Amer 87 Est GFR (MDRD) Non-Af 72 BUN/Creatinine Ratio 19.3 Glucose 107 H Calcium 8.7 B-Natriuretic Peptide 38.7 Radiography Diagnostic Testing: Clinical Impression(s) from Imaging Studies Venous Duplex 01/26/23 16:41 IMPRESSION: No evidence for DVT. Electronically Signed: Jose J Batista MD at 17:41 EDT , Treatment and Re-Evaluation :: Patient appears to be in no distress, patient appears nontoxic, vital signs are stable. Patient presents to the emergency department for 3 days of right leg redness and swelling. He was referred here by his PCP. Patient's physical lamination consistent with right lower leg cellulitis. However patient did receive some basic laboratory values, as well as a venous duplex of the right lower extremity concerning for any DVT. Patient's DVT study was negative for any acute process. Patient's laboratory values show a normal CBC, patient's chemistries were unremarkable. Patient showed no sign of septicemia. At this time, I believe the patient can be treated outpatient for cellulitis. He placed on Augmentin first dose given here. He will be on Augmentin twice a day for 10 days. He will follow-up closely with his PCP. The patient's and him were given return precautions, all questions answered. Patient stable for discharge. <Dr. Timoteo Vázquez MD - Last Filed: 01/28/23 15:07> [facility] Narrative Medical decision making narrative: I have personally performed a face to face assessment of the patient and have reviewed the DOMENICA Note. I performed a substantive portion of the visit including all aspects of the following. My hooper findings include: History: Patient presents with redness and some discomfort of right lower extremity. He was sent in by his primary physician. He has no history of DVT. He does have chronic edema but that is not new. He did fall about a week ago and maybe scraped his leg but it was not hurting afterwards. He has no fevers chills nausea or vomiting. He has never been diabetic. Exam: Exam shows erythema and warmth mostly of the anterior clemente but it tracks up the medial leg to about his knee. He has chronic edema which he states is baseline. There is a little abrasion to his lower clemente more laterally. And erythema does seem to center from this. But it does not break the skin. He states that is an area that opens and closes and develops a scab frequently. He just scraped it off recently. Medical Decision Making: Patient does not have an elevated white count. Glucose is minimally over normal at 107. Ultrasound is negative. Beta natruretic peptide is negative. We will get him on antibiotics and have him follow-up. We discussed returning with nausea vomiting fevers weakness more swelling or any other concerns. Lab Data Labs: Laboratory Results - last 24 hr 01/26/23 16:49 WBC 6.6 RBC 4.82 Hgb 12.9 L Hct 40.5 MCV 84.0 MCH 26.8 L MCHC 31.9 L RDW Std Deviation 45.2 H RDW Coeff of Kvng 15.0 H Plt Count 262 MPV 10.0 Immature Gran % (Auto) 0.500 Neut % (Auto) 64.5 Lymph % (Auto) 22.6 Petroleum % (Auto) 8.4 Eos % (Auto) 3.2 Baso % (Auto) 0.8 Absolute Neuts (auto) 4.3 Absolute Lymphs (auto) 1.49 Nucleated RBC % 0 Sodium 139 Potassium 3.6 Chloride 106 Carbon Dioxide 26.0 Anion Gap 7 BUN 21 H Creatinine 1.09 Estim Creat Clear Calc 60.16 Est GFR (MDRD) Af Amer 87 Est GFR (MDRD) Non-Af 72 BUN/Creatinine Ratio 19.3 Glucose 107 H Calcium 8.7 B-Natriuretic Peptide 38.7 Radiography Diagnostic Testing: Clinical Impression(s) from Imaging Studies Venous Duplex 01/26/23 16:41 IMPRESSION: No evidence for DVT. Electronically Signed: Jose J Batista MD at 17:41 EDT , Discharge Plan Triage Chief Complaint: Cellulitis ED Midlevel Provider: Teddy Hudson ED Provider: Timoteo Vázquez Dx/Rx/DC Orders Clinical Impression: Cellulitis of leg, right Instructions: Cellulitis Dc Prescriptions: New amoxicillin-pot clavulanate 875-125 mg tablet 1 tab PO BID Qty: 19 0RF No Action valsartan 160 mg tablet 160 mg PO DAILY Qty: 90 2RF minocycline 50 mg capsule 50 mg PO BID Qty: 180 3RF cetirizine 10 mg tablet 10 mg PO DAILY furosemide [Lasix] 20 mg tablet 20 mg PO QAM Qty: 90 3RF potassium chloride 10 mEq tablet extended release 10 meq PO DAILY Qty: 90 1RF amoxicillin-pot clavulanate 875-125 mg tablet 1 tab PO BID Qty: 14 0RF hydrochlorothiazide 25 mg tablet 25 mg PO DAILY Qty: 90 2RF Primary Care Provider: Jung Sánchez Referrals: Jung Sánchez, [Primary Care Provider] - Activity Restrictions/Additional Instructions: Please take antibiotics until finished. Return for worsening redness, fever chills Disposition Disposition: Home, Self Care Discharge Date/Time: 01/26/23 18:11
--- NOTE | 2023-01-26 16:39 | ED.RN ---
PATIENT REQUESTING BE NOTIFIED THAT HE IS HERE INSTEAD OF URGENT CARE AND THAT HE FORGOT HIS PHONE AT HOME. , FÉLIX STATES SHE WILL TRY TO COME
--- NOTE | 2023-01-26 16:41 | US_ITS ---
STUDY: VENOUS DOPPLER ULTRASOUND - RIGHT LOWER EXTREMITY REASON FOR EXAM: Male, 67 years old. RT ANKLE REDNESS/ SWELLING/ PAIN CELLULITIS TECHNIQUE: Ultrasound evaluation of the deep vein system to include purvis-scale imaging and compression was performed. Purvis-scale imaging and Doppler sonographic evaluation, including duplex spectral analysis and qualitative color flow sonography, was performed. COMPARISON: None. FINDINGS: Common Femoral Vein: Normal compression, spontaneity and augmentation. Normal color Doppler. Common Femoral Vein/Greater Saphenous Junction: Normal compression, spontaneity and augmentation. Normal color Doppler. Deep Femoral Vein: Normal compression, spontaneity and augmentation. Normal color Doppler. Femoral Proximal: Normal compression, spontaneity and augmentation. Normal color Doppler. Femoral Middle: Normal compression, spontaneity and augmentation. Normal color Doppler. Femoral Distal: Normal compression, spontaneity and augmentation. Normal color Doppler. Popliteal Vein: Normal compression, spontaneity and augmentation. Normal color Doppler. Posterior Tibial Vein: Normal compression, spontaneity and augmentation. Normal color Doppler. Peroneal Vein: Normal compression, spontaneity and augmentation. Normal color Doppler. US/Venous Duplex Imag/Limited/Uni IMPRESSION: No evidence for DVT. Electronically Signed: Jose J Batista MD at 17:41 EDT ,
[2023-01-26 17:13] LABS: Absolute Lymphocyte Count 1.49 X10^3/uL (0.83-4.51); Absolute Neutrophil Count 4.3 X10^3/uL (2.0-7.7); Basophil# 0.05 X10^3/uL; Basophil% 0.8 % (0-1); Eosinophil# 0.21 X10^3/uL; Eosinophils% 3.2 % (0-5); Hematocrit 40.5 % (40-54); Hemoglobin 12.9 g/dL (13.0-16.5); Lymphocyte # 1.49 X10^3/ul (0.83-4.51); Lymphocyte % 22.6 % (19-41); Mean Corp Hgb Conc 31.9 g/dL (32-36); Mean Corpuscular Hgb 26.8 pg (27.0-32.0); Monocyte# 0.55 X10^3/uL; Monocyte% 8.4 % (0-10); NRBC Flagged by Analyzer 0 % (0-5); Neutrophil # 4.25 X10^3/uL (2.7-7.7); Neutrophil % 64.5 % (47-70); Platelet Count 262 K/mm3 (150-450); RBC Distribution Width SD 45.2 fl (35.1-43.9); Red Blood Count 4.82 M/mm3 (4.6-6.2); White Blood Count 6.6 K/mm3 (4.4-11.0)
[2023-01-26 17:21] LABS: Anion Gap 7 (5-15); BUN 21 mg/dL (7-18); BUN/Creat Ratio 19.3 RATIO (10-20); Calcium,Total 8.7 mg/dL (8.5-10.1); Chloride 106 mmol/L (98-107); Creatinine, Serum 1.09 mg/dL (0.70-1.30); EST Glomerular Filtration Rate 72 mL/min (>60); Est Glom Filt Rate - Afr Amer 87 mL/min (>60); Estimated Creatinine Clearance 60.16 ml/min; Glucose 107 mg/dL (74-106); Potassium 3.6 mmol/L (3.5-5.1); Sodium Level 139 mmol/L (136-145)
[2023-01-26 17:25] LABS: BNP,B-Type NATRIURETIC PEPTIDE 38.7 pg/mL (0-100)
[2023-01-26] MEDS: Amox/Clavulanate 875 MG Tablet PO (18:07)
== END 2023-01-26 18:11 | disposition home or self-care (01) ==
PROVIDERS: Nurse Practitioner; Emergency Provider Emergency Medicine; PCP Family Medicine; Visit Provider Emergency Medicine
DX: L03.115 Cellulitis of right lower limb (principal); Z86.16 Personal history of COVID-19
CPT/HCPCS: 80048; 83880; 85025; 93971; 99284; A4216

== ENCOUNTER → 2023-11-14 | Outpatient (CLI) | payer MEDICARE, SELFPAY ==
--- NOTE | 2023-11-14 14:46 | VDLE_ITS ---
Reason For Study: Right leg pain RIGHT LEFT GSV is normal. CFV is compressible, spontaneous, phasic, CFV is compressible, spontaneous, phasic, competent, and demonstrates normal competent and demonstrates normal augmentation. augmentation. FV is compressible, spontaneous, phasic, competent and demonstrates normal augmentation. POP V is compressible, spontaneous, phasic, competent and demonstrates normal augmentation. T/P Trunk is compressible. PTV is compressible. RT PerV is compressible. Procedure Exam performed in department. This is a venous duplex using B-mode, color flow and spectral Doppler. Peroneal veins only visualized at distal calf due to edema. A preliminary report was called and/or faxed to FLORA Capone. VL/Venous Duplex US, Unilateral Interpretation Summary Deep veins of the right lower extremity are patent and compressible segmentally . There is no evidence of right lower extremity deep vein thrombosis. The right great sapheno us vein appears patent and compressible segmentally. Ordering Physician: Donny Capone Referring Physician: Russell Sánchez M.D. Performed By: Stephanie Reza RVT and Student
== END | disposition home or self-care (01) ==
LOC: CVS 14:43
PROVIDERS: PCP Family Medicine; Referring Provider Physician Assistant; Visit Provider Physician Assistant
DX: R60.0 Localized edema (principal); L03.115 Cellulitis of right lower limb
CPT/HCPCS: 87070; 87205; 93971

== ENCOUNTER → 2023-11-14 | Outpatient (CLI) | payer MEDICARE, SELFPAY | END | disposition home or self-care (01) | PROVIDERS: PCP Family Medicine; Visit Provider Physician Assistant | DX: L03.115 Cellulitis of right lower limb (principal) | CPT/HCPCS: 87070; 87077; 87186; 87205 ==

== ENCOUNTER 2023-12-25 13:22 | Emergency (ER) | payer MEDICARE, SELFPAY ==
[2023-12-25 13:23] VITALS: PULSE 86; RESP 22; TEMP 36.2; O2SAT 100; BMI 50.8
[2023-12-25 13:26] VITALS: BP 176/95
--- NOTE | 2023-12-25 13:56 | EDS_ITS ---
<Statement entered by Tonja Padilla MD - 12/25/23 17:28> I have personally performed a face to face assessment of the patient and have reviewed the DOMEN[facility] Note. Patient presents with concerns of sinusitis. He has had symptoms for approximately 2 weeks. He was seen by his PCP and given a course of Amoxicillin which has not improved his symptoms. He denies fever. He does report a history of allergies. Head and neck exam is unremarkable. No sinus tenderness on palpation. Heart is regular rate and rhythm. Lungs are clear. Abdomen is soft and non-tender. Patient will be treated with Flonase, Afrin, and Mucinex. I do not feel patient has a bacterial infection that requires further antibiotics. He will follow-up with his PCP later this week. HPI History of Present Illness Chief Complaint: Cold Sx Narrative Narrative: 68 year old male states he just finished amoxicillin for sinusitis and has had 3 days of of sore throat, dry cough, and left ear pain when he swallows. He is most concerned about his ear hurting. He is taking aleve without relief. No fever or chills, no shortness of breath, no headache, no GI symptoms. [facility] Medical History Acne rosacea Acute frontal sinusitis, unspecified Acute sinusitis, unspecified Arthritis of knee Cough COVID-19 History of basal cell carcinoma History of skin cancer Hypertension Infected dental carries Inguinal hernia of left side without obstruction or gangrene Prediabetes Right-sided chest wall pain Skin ulcer of scrotum URI (upper respiratory infection) Home Medications ?Medication ?Instructions ?Recorded ?Last Taken ?Type cetirizine 10 mg tablet 10 mg PO DAILY 09/30/22 12/25/23 History furosemide 40 mg tablet 40 mg PO DAILY #90 tabs 04/11/23 12/25/23 Rx minocycline 50 mg capsule 50 mg PO BID #180 caps 05/10/23 Unknown Rx fluticasone propionate 50 1 spray intranasal BID #16 grams 12/25/23 Unknown Rx mcg/actuation nasal spray,suspension (Flonase Allergy Relief) guaifenesin 600 mg tablet, 600 mg PO BID 7 days #14 tabs 12/25/23 Unknown Rx extended release 12 hr (Mucinex) oxymetazoline 0.05 % nasal mist 2 spray intranasal Q12H PRN nasal 12/25/23 Unknown Rx (Afrin (oxymetazoline)) congestion 3 days #15 mL Allergy/AdvReac Type Severity Reaction Status Date / Time Sulfa (Sulfonamide Allergy Hives Verified 12/25/23 13:25 Antibiotics) Family History Father Myocardial infarction, Onset Age: 57 Surgical History H/O wrist surgery Social History Smoking Status: Never smoker alcohol intake: never substance use type: does not use what type of physical activity do you participate in: none ROS ROS ED ROS Narrative Constitutional: Negative for fever, chills, malaise. ENT: Positive for sore throat, ear pain, rhinorrhea. Respiratory: Positive for cough. Negative for shortness of breath. GI: Negative for abdominal pain, nausea, vomiting, diarrhea. EXAM Physical Exam Narrative Exam Narrative: CONST: Patient sitting in no acute distress. EYES: Normal inspection. ENT: Moist mucous membranes and normal posterior oropharynx, nares clear, normal pearly white TMs bilaterally. No mastoid erythema swelling or tenderness. NECK: Normal inspection. No lymphadenopathy. RESP: No respiratory distress, CTAB. CVS: Regular rate and rhythm, no murmur, no gallop. SKIN: Color normal, no rash, warm, dry, intact. EXTREMITIES: Normal appearance, no pedal edema. NEURO: Alert and answering questions appropriately. PSYCH: Normal affect. Const Vital Signs: 12/25/23 13:23 12/25/23 13:26 12/25/23 13:28 Temperature 97.1 F L Temperature Source Temporal Pulse Rate 86 Respiratory Rate 22 H Respiratory Effort Normal Non-Labored Respiratory Pattern Normal Blood Pressure 176/95 H Blood Pressure Mean 122 Pulse Ox 100 Oxygen Delivery Method Room Air 12/25/23 14:54 Temperature 97.6 F L Temperature Source Pulse Rate 77 Respiratory Rate 20 H Respiratory Effort Respiratory Pattern Blood Pressure 167/88 H Blood Pressure Mean 114 Pulse Ox 92 Oxygen Delivery Method MDM MDM MDM Narrative Medical decision making narrative: Patient presents with URI symptoms. He reports recently finishing amoxicillin for sinus congestion. His main complaint is left ear pain with swallowing. He appears well and nontoxic and is afebrile and hemodynamically stable. His HEENT exam is normal. There is no signs of otitis externa, media, or mastoiditis. I suspect his congestion is caused left ear pressure/pain or eustachian tube dysfunction. I prescribed Flonase, Afrin, and Mucinex. He was discharged in stable condition. Discharge Plan Triage Chief Complaint: Cold Sx ED Midlevel Provider: Katalina Solorzano ED Provider: Tonja Padilla Dx/Rx/DC Orders Clinical Impression: Upper respiratory infection, Otalgia of left ear Prescriptions: New guaifenesin [Mucinex] 600 mg tablet extended release 12hr 600 mg PO BID 7 Days Qty: 14 0RF Afrin (oxymetazoline) 0.05 % mist 2 spray intranasal Q12H PRN (Reason: nasal congestion) 3 Days Qty: 15 0RF Rx Instructions: only use for 3 days fluticasone propionate [Flonase Allergy Relief] 50 mcg/actuation spray,suspension 1 spray intranasal BID Qty: 16 0RF Rx Instructions: administer into each nostril No Action cetirizine 10 mg tablet 10 mg PO DAILY furosemide 40 mg tablet 40 mg PO DAILY Qty: 90 1RF minocycline 50 mg capsule 50 mg PO BID Qty: 180 3RF Primary Care Provider: Jung Sánchez Referrals: Jung Sánchez DO [Primary Care Provider] - Print Language: [place] Disposition Disposition: Home, Self Care Discharge Date/Time: 12/25/23 15:00
[2023-12-25 14:54] VITALS: BP 167/88; PULSE 77; RESP 20; TEMP 36.4; O2SAT 92
== END 2023-12-25 15:00 | disposition home or self-care (01) ==
PROVIDERS: Emergency Provider Emergency Medicine; PCP Family Medicine; Visit Provider Emergency Medicine
DX: J06.9 Acute upper respiratory infection, unspecified (principal); H92.02 Otalgia, left ear; Z79.899 Other long term (current) drug therapy
CPT/HCPCS: 99282

== ENCOUNTER → 2024-06-18 | Outpatient (CLI) | payer MEDICARE, SELFPAY ==
[2024-06-18 16:52] LABS: Absolute Lymphocyte Count 2.02 X10^3/uL (0.83-4.51); Absolute Neutrophil Count 5.2 X10^3/uL (2.0-7.7); Basophil# 0.08 X10^3/uL; Basophil% 0.9 % (0-1); Eosinophil# 0.38 X10^3/uL; Eosinophils% 4.4 % (0-5); Hematocrit 42.6 % (40-54); Hemoglobin 13.2 g/dL (13.0-16.5); Lymphocyte # 2.02 X10^3/ul (0.83-4.51); Lymphocyte % 23.6 % (19-41); Mean Corpuscular Hgb 25.8 pg (27.0-32.0); Mean Corpuscular Volume 83.2 fL (80-94); Mean Platelet Vol. 10.1 fl (6.2-12.0); Monocyte% 9.3 % (0-10); NRBC Flagged by Analyzer 0 % (0-5); Neutrophil # 5.24 X10^3/uL (2.7-7.7); Neutrophil % 61.3 % (47-70); Platelet Count 255 K/mm3 (150-450); RBC Distribution Width CV 15.5 % (11.6-14.6); RBC Distribution Width SD 46.8 fl (35.1-43.9); Red Blood Count 5.12 M/mm3 (4.6-6.2); White Blood Count 8.6 K/mm3 (4.4-11.0)
[2024-06-18 17:11] LABS: AST(SGOT) 18 U/L (15-37); Alanine Aminotransfer ALT/SGPT 28 U/L (16-61); Albumin, Serum 3.7 g/dL (3.2-5.0); Alkaline Phosphatase 91 U/L (45-117); Anion Gap 5 (5-15); BUN 22 mg/dL (7-18); BUN/Creat Ratio 21.4 RATIO (10-20); Calcium,Total 9.5 mg/dL (8.5-10.1); Chloride 107 mmol/L (98-107); Creatinine, Serum 1.03 mg/dL (0.70-1.30); EST Glomerular Filtration Rate 76 mL/min (>60); Est Glom Filt Rate - Afr Amer 93 mL/min (>60); Globulin 3.6 g/dL (2.2-4.2); Glucose 96 mg/dL (74-106); Potassium 3.6 mmol/L (3.5-5.1); Protein, Total 7.3 g/dL (6.4-8.2); Sodium Level 139 mmol/L (136-145)
== END | disposition home or self-care (01) ==
LOC: BIMLAB 14:22
PROVIDERS: Physician Assistant; PCP Family Medicine; Visit Provider Family Medicine
DX: I89.0 Lymphedema, not elsewhere classified (principal); R60.0 Localized edema
CPT/HCPCS: 36415; 80053; 85025